=== PATIENT | female | born 1955 | race Caucasian/White ===

== ENCOUNTER 2018-02-12 00:13 | Inpatient (IN) | payer MEDICAID ==
[2018-02-12] VITALS (703 sets, daily range): BP systolic 129–174; BP diastolic 51–134; PULSE 57–78; TEMP 97.1–99; O2SAT 81–99
[~2018-02-12] VITALS: Ht 165.1 cm; Wt 138.1 kg
[2018-02-12 00:38] LABS: BASO # 0.1 (0.0-0.2); BASO % 0.9 % (0.0-2.0); EOS % 0.3 % (0-4.0); GRAN # 7.3 (1.4-6.5); GRAN % 62.4 % (42.2-75.2); HEMATOCRIT 45.7 % (37.0-47.0); HEMOGLOBIN 13.4 g/dl (12.5-16.0); LYMPH # 2.9 (1.2-3.4); LYMPH % 25.1 % (20.0-51.0); MEAN CELL VOLUME 83 fl (80.0-100.0); MEAN CORPUSCULAR HEMOGLOBIN 25 pg (27.0-31.0); MEAN CORPUSCULAR HGB CONC 29 g/dl (33.0-37.0); MEAN PLATELET VOLUME 11.4 fl (7.4-10.4); MONO # 1.3 (0.1-0.6); MONO % 10.8 % (1.7-9.3); PLATELET COUNT 264 K/mm3 (130-400); RED BLOOD COUNT 5.48 M/mm3 (4.10-5.30); REDCELL DISTRIBUTION WIDTH-CV 17.2 % (11.5-14.5)
[2018-02-12 00:47] LABS: INR 1.1 (0.8-3.0); PROTHROMBIN TIME 12.3 SECONDS (9.7-12.8)
[2018-02-12 01:01] LABS: ALBUMIN 4.3 gm/dL (3.5-5.0); CALCIUM 9.2 mg/dL (8.4-10.2); CREATININE, serum 1.2 mg/dL (0.52-1.25); POTASSIUM 4.1 mmol/L (3.4-5.0); TOTAL PROTEIN 7.8 gm/dL (6.4-8.2)
[2018-02-12] MEDS ORDERED: GLUCOPHAGE500 MG/TAB PO (01:03)
[2018-02-12] MEDS ORDERED: LASIX 40MG TABL40 MG PO (01:05)
[2018-02-12] MEDS ORDERED: TYLENOL 500MG500 MG PO (01:06)
[2018-02-12 01:14] LABS: TROPONIN-I 0.077 ng/mL (0.000-0.034)
[2018-02-12] MEDS ORDERED: VIIBRYD10 MG PO (01:15)
[2018-02-12] MEDS ORDERED: BUSPAR5 MG PO ×2 (01:16→02:57)
[2018-02-12 03:53] LABS: MAGNESIUM 1.6 mg/dL (1.6-2.3); PHOSPHOROUS 4.5 mg/dL (2.5-4.5)
[2018-02-12 04:16] LABS: TROPONIN-I 3 HR POST INITIAL 0.064 ng/mL (0.000-0.034)
[2018-02-12 04:25] LABS: TSH w REFLEX 1.75 uIU/mL (0.465-4.680)
[2018-02-12 04:50] LABS: COLLECTION METHOD CLEAN CATCH
[2018-02-12 05:00] LABS: MUCOUS Present /lpf; PH 5 (5-8); URINE APPEARANCE Hazy; URINE BACTERIA None Seen /hpf; URINE BILIRUBIN Negative (NEGATIVE); URINE BLOOD Negative (NEGATIVE); URINE COLOR Yellow; URINE GLUCOSE Negative (NEGATIVE); URINE KETONE Negative (NEGATIVE); URINE LEUKOCYTE ESTERASE 1+ (NEGATIVE); URINE NITRATE Negative (NEGATIVE); URINE PROTEIN(semi-quant) 2+ (NEGATIVE); URINE UROBILINOGEN Negative (NEGATIVE)
[2018-02-12 14:24] LABS: CHOLESTEROL RISK RATIO 3.4
[2018-02-13] VITALS (733 sets, daily range): BP systolic 132–149; BP diastolic 77–102; PULSE 57–73; TEMP 98–99.2; O2SAT 88–100
[2018-02-13 05:50] LABS: BASO # 0.1 (0.0-0.2); BASO % 0.9 % (0.0-2.0); EOS # 0.2 (0.0-0.7); EOS % 2.7 % (0-4.0); GRAN # 3.2 (1.4-6.5); GRAN % 57.2 % (42.2-75.2); HEMATOCRIT 40.3 % (37.0-47.0); LYMPH # 1.4 (1.2-3.4); LYMPH % 25.5 % (20.0-51.0); MEAN CELL VOLUME 83 fl (80.0-100.0); MEAN CORPUSCULAR HEMOGLOBIN 25 pg (27.0-31.0); MEAN CORPUSCULAR HGB CONC 30 g/dl (33.0-37.0); MEAN PLATELET VOLUME 11.3 fl (7.4-10.4); MONO # 0.7 (0.1-0.6); MONO % 13.5 % (1.7-9.3); PLATELET COUNT 191 K/mm3 (130-400); RED BLOOD COUNT 4.88 M/mm3 (4.10-5.30); REDCELL DISTRIBUTION WIDTH-CV 16.7 % (11.5-14.5)
[2018-02-13 06:28] LABS: CALCIUM 8.8 mg/dL (8.4-10.2); MAGNESIUM 1.9 mg/dL (1.6-2.3); POTASSIUM 3.3 mmol/L (3.4-5.0)
[2018-02-13] MEDS ORDERED: VIIBRYD40 MG PO (18:03)
[2018-02-13] MEDS ORDERED: VOLTAREN 75 DR75 MG PO (18:04)
[2018-02-13] MEDS ORDERED: BUSPAR DIVIDOSE15 MG PO (18:05)
[2018-02-13] MEDS ORDERED: COZAAR 50MG50 MG/TAB PO (18:11)
[2018-02-14] VITALS (489 sets, daily range): BP systolic 155–164; BP diastolic 83–95; PULSE 63–84; TEMP 98–99.4; O2SAT 81–100
[2018-02-14 05:40] LABS: BASO # 0.1 (0.0-0.2); BASO % 0.9 % (0.0-2.0); EOS # 0.2 (0.0-0.7); EOS % 2.1 % (0-4.0); GRAN # 5.3 (1.4-6.5); GRAN % 65.1 % (42.2-75.2); HEMOGLOBIN 11.2 g/dl (12.5-16.0); LYMPH # 1.5 (1.2-3.4); LYMPH % 18.8 % (20.0-51.0); MEAN CELL VOLUME 82 fl (80.0-100.0); MEAN CORPUSCULAR HEMOGLOBIN 25 pg (27.0-31.0); MEAN CORPUSCULAR HGB CONC 30 g/dl (33.0-37.0); MEAN PLATELET VOLUME 10.7 fl (7.4-10.4); MONO % 12.9 % (1.7-9.3); PLATELET COUNT 188 K/mm3 (130-400); RED BLOOD COUNT 4.49 M/mm3 (4.10-5.30); REDCELL DISTRIBUTION WIDTH-CV 16.4 % (11.5-14.5)
[2018-02-14 05:41] LABS: HEMATOCRIT 36.8 % (37.0-47.0)
[2018-02-14 05:52] LABS: CALCIUM 8.9 mg/dL (8.4-10.2); CREATININE, serum 0.87 mg/dL (0.52-1.25); POTASSIUM 4.1 mmol/L (3.4-5.0)
[2018-02-14] MEDS ORDERED: COREG 6.256.25 MG/TA PO (13:10)
[2018-02-14] MEDS ORDERED: ELIQUIS 5MG PO (13:10)
[2018-02-14] MEDS ORDERED: LASIX 40MG TABL40 MG PO (13:11)
[2018-02-14] MEDS ORDERED: PACERONE400 MG PO (13:17)
== END 2018-02-14 15:10 | disposition home or self-care (01) | DRG 280 ==
LOC: COL.ER 00:13 → ICU 01:29
PROVIDERS: Emergency Medicine; Internal Medicine; Internal Medicine Cardiovascular Disease; Physician Assistant
PROC: B2111ZZ Fluoroscopy of Multiple Coronary Arteries using Low Osmolar Contrast (ICD-10-PCS; principal; 2018-02-12)
PROC: B2151ZZ Fluoroscopy of Left Heart using Low Osmolar Contrast (ICD-10-PCS; 2018-02-12)
PROC: 4A023N7 Measurement of Cardiac Sampling and Pressure, Left Heart, Percutaneous Approach (ICD-10-PCS; 2018-02-12)
PROC: B31H1ZZ Fluoroscopy of Right Upper Extremity Arteries using Low Osmolar Contrast (ICD-10-PCS; 2018-02-12)
DX: I48.92 Unspecified atrial flutter (principal); I21.A1 Myocardial infarction type 2; I50.23 Acute on chronic systolic (congestive) heart failure; Z68.43 Body mass index [BMI] 50.0-59.9, adult; E66.01 Morbid (severe) obesity due to excess calories; I11.0 Hypertensive heart disease with heart failure; I42.0 Dilated cardiomyopathy; E11.9 Type 2 diabetes mellitus without complications; F41.8 Other specified anxiety disorders; Z87.891 Personal history of nicotine dependence; E83.42 Hypomagnesemia
CPT/HCPCS: 99222-AI; 99233-AI; 99239; C1769; C1887; J0282; J1200; J1644; J1650; J1940; J2060; J2250; J2270; J2405; J3010; J3475; J7030; J7060; Q9967

== ENCOUNTER → 2018-03-13 | Outpatient (CLI) | payer MEDICAID ==
[~2018-03-13] MED LIST: BUSPAR DIVIDOSE15 MG PO; BUSPAR5 MG PO; COREG 6.256.25 MG/TA PO; COZAAR 50MG50 MG/TAB PO; ELIQUIS 5MG PO; GLUCOPHAGE500 MG/TAB PO; LASIX 40MG TABL40 MG PO; PACERONE400 MG PO; TYLENOL 500MG500 MG PO; VIIBRYD10 MG PO; VIIBRYD40 MG PO; VOLTAREN 75 DR75 MG PO
== END ==
LOC: MC.RAD 01-30 13:20
DX: Z12.31 Encounter for screening mammogram for malignant neoplasm of breast (principal)